=== PATIENT | female | born 1930 | race Caucasian/White ===

== ENCOUNTER 2019-10-09 11:39 | Emergency (ER) | payer MEDICARE, BC ==
[2019-10-09] MEDS ORDERED: Sodium Chloride 0.9% 10 ML Syringe FLUSH PRN (11:46)
--- NOTE | 2019-10-09 12:02 | EDM.PDOC ---
ED HPI GENERAL MEDICAL PROBLEM - General Chief Complaint: Cardiovascular Problem Stated Complaint: HEART PROBLEMS Time Seen by Provider: 10/09/19 12:15 Source of Information: Reports: Patient, RN. Denies: Old Records History Limitations: Reports: Other (no old records) - History of Present Illness INITIAL COMMENTS - FREE TEXT/NARRATIVE: 89 yo [place] no prior hx of afib noted a couple hrs before arrival that her heart was beating irregularly. She denies SOB, CP, or diaphoresis. Here with her . Onset: Today Onset Date: 10/09/19 Onset Time: 10:00 Duration: Hour(s): (2+), Constant Location: Reports: Chest Quality: Reports: Other (no pain) Severity: Moderate Improves with: Reports: None Worsens with: Reports: None Context: Reports: Other (See HPI) Associated Symptoms: Denies: Chest Pain, Diaphoresis, Shortness of Breath Treatments [employer]: Reports: Other (see below) (none) - Related Data Allergies Allergy/AdvReac Type Severity Reaction Status Date / Time Penicillins Allergy Cannot Verified 10/09/19 11:52 Remember Home Meds: Home Meds Aspirin [Ecotrin EC] 325 mg PO DAILY 10/09/19 [History] Clopidogrel [Plavix] 75 mg PO DAILY 10/09/19 [History] Denosumab [Prolia] 60 mg .XX ASDIRECTED 10/09/19 [History] Lovastatin 5 mg PO DAILY 10/09/19 [History] lisinopriL [Lisinopril] 2.5 mg PO DAILY 10/09/19 [History] Past Medical History HEENT History: Reports: Impaired Vision - Infectious Disease History Infectious Disease History: Reports: Chicken Pox, Measles, Mumps - Past Surgical History Musculoskeletal Surgical History: Reports: Knee Replacement Social & Family History - Tobacco Use Smoking Status *Q: Never Smoker - Caffeine Use Caffeine Use: Reports: Tea ED ROS GENERAL - Review of Systems Review Of Systems: See Below Constitutional: Reports: No Symptoms HEENT: Reports: No Symptoms Respiratory: Reports: No Symptoms Cardiovascular: Reports: Palpitations GI/Abdominal: Reports: No Symptoms : Reports: No Symptoms Musculoskeletal: Reports: No Symptoms Skin: Reports: No Symptoms Neurological: Reports: No Symptoms ED EXAM, GENERAL - Physical Exam Exam: See Below Exam Limited By: No Limitations General Appearance: Alert, WD/WN, No Apparent Distress Eye Exam: Bilateral Eye: Normal Inspection Ears: Normal External Exam, Normal Canal, Hearing Grossly Normal, Normal TMs Ear Exam: Bilateral Ear: Auricle Normal, Canal Normal Nose: Normal Inspection, No Blood Throat/Mouth: Normal Inspection, Normal Lips, Normal Oropharynx, Normal Voice, No Airway Compromise Head: Atraumatic, Normocephalic Neck: Normal Inspection Respiratory/Chest: No Respiratory Distress, Lungs Clear, Normal Breath Sounds, No Accessory Muscle Use, Chest Non-Tender Cardiovascular: No Edema, Tachycardia, Irregularly Irregular GI/Abdominal: Normal Bowel Sounds, Soft, Non-Tender, No Distention Back Exam: Normal Inspection. No: CVA Tenderness (R), CVA Tenderness (L) Extremities: Normal Inspection, Normal Range of Motion, Non-Tender, No Pedal Edema Neurological: Alert, Oriented, CN II-XII Intact, Normal Cognition, No Motor/S ensory Deficits Psychiatric: Normal Affect, Normal Mood Skin Exam: Warm, Dry, Intact, Normal Color, No Rash EKG INTERPRETATION EKG Date: 10/09/19 Time: 11:40 Rhythm: A-Fib Rate (Beats/Min): 139 [place]: Normal P-Wave: Absent QRS: LBBB ST-T: Normal QT: Normal Comparison: NA - No Prior EKG Course - Vital Signs Last Recorded V/S: Last Vital Signs Temp 36.9 C 10/09/19 11:45 Pulse 91 10/09/19 13:50 Resp 15 10/09/19 11:45 BP 151/75 H 10/09/19 13:50 Pulse Ox 98 10/09/19 11:45 - Orders/Labs/Meds Orders: Active Orders 24 hr Category Date Time Status Cardiac Monitoring [RC] .As Directed Care 10/09/19 11:46 Active EKG Documentation Completion [RC] ASDIRECTED Care 10/09/19 11:46 Active Sodium Chloride 0.9% [Saline Flush] Med 10/09/19 11:46 Active 10 ml FLUSH ASDIRECTED PRN Saline Lock Insert [OM.PC] Routine Oth 10/09/19 11:46 Ordered EKG 12 Lead [EK] Routine Ther 10/09/19 11:45 Ordered Medication Orders Sodium Chloride (Saline Flush) 10 ml FLUSH ASDIRECTED PRN PRN Reason: Keep Vein Open Last Admin: 10/09/19 12:07 Dose: 10 ml Documented by: JULY Labs: Laboratory Tests 10/09/19 10/09/19 Range/Units 12:01 12:01 WBC 7.6 (4.5-11.0) K/uL RBC 4.40 (3.30-5.50) M/uL Hgb 13.4 (12.0-15.0) g/dL Hct 41.3 (36.0-48.0) % MCV 94 (80-98) fL MCH 31 (27-31) pg MCHC 32 (32-36) % Plt Count 206 (150-400) K/uL Sodium 144 (140-148) mmol/L Potassium 4.3 (3.6-5.2) mmol/L Chloride 108 (100-108) mmol/L Carbon Dioxide 24 (21-32) mmol/L Anion Gap 11.9 (5.0-14.0) mmol/L BUN 16 (7-18) mg/dL Creatinine 0.7 (0.6-1.0) mg/dL Est Cr Clr Drug Dosing 39.90 mL/min Estimated GFR (MDRD) > 60 (>60) Glucose 101 (74-106) mg/dL Calcium 9.6 (8.5-10.1) mg/dL Troponin I < 0.017 (0.000-0.056) ng/mL TSH, Ultra Sensitive 1.397 (0.358-3.740) uIU/mL Meds: Medications Generic Name Dose Route Start Last Admin Trade Name Freq PRN Reason Stop Dose Admin Sodium Chloride 10 ml 10/09/19 11:46 10/09/19 12:07 Saline Flush FLUSH 10 ml ASDIRECTED PRN Administration Keep Vein Open Discontinued Medications Generic Name Dose Route Start Last Admin Trade Name Freq PRN Reason Stop Dose Admin Metoprolol Tartrate 5 mg 10/09/19 12:41 10/09/19 12:45 Lopressor IVPUSH 10/09/19 12:42 5 mg ONETIME ONE Administration Metoprolol Tartrate 5 mg 10/09/19 12:55 10/09/19 12:57 Lopressor IVPUSH 10/09/19 12:56 5 mg ONETIME ONE Administration Metoprolol Tartrate 50 mg 10/09/19 12:59 Lopressor PO 10/09/19 13:00 ONETIME ONE Metoprolol Tartrate 25 mg 10/09/19 13:48 10/09/19 13:50 Lopressor PO 10/09/19 13:49 25 mg ONETIME ONE Administration - Re-Assessments/Exams Free Text/Narrative Re-Assessment/Exam: 10/09/19 12:39 Cardioverted with IV propofol x 2 at 200 J and each time she converted to NSR and reverted back to afib. Free Text/Narrative Re-Assessment/Exam: 10/09/19 15:02 Did well after 50 mg of Metoprolol tartrate po. Able to ambulate without issue. Departure - Departure Time of Disposition: 15:10 Disposition: Home, Self-Care 01 Condition: Fair Clinical Impression: Atrial fibrillation with RVR Instructions: Atrial Fibrillation, [id number] Referrals: PCP,None [Primary Care Provider] - Forms: ED Department Discharge Additional Instructions: Take metoprolol tartrate 50 mg every 12 hrs. See your doctor as soon as possible for recheck, take all of your test results with you to your appt. Return here for a recurrence of your rapid heart rate. Sepsis Event Note (ED) - Focused Exam Vital Signs: Vital Signs Temp Pulse Pulse Resp BP BP Pulse Ox 10/09/19 13:50 91 151/75 H 10/09/19 12:57 98 102/56 L 10/09/19 12:45 119 H 102/46 L 10/09/19 11:45 36.9 C 145 H 15 162/88 H 98 - My Orders Last 24 Hours: My Active Orders 10/09/19 11:45 EKG 12 Lead [EK] Routine 10/09/19 11:46 Cardiac Monitoring [RC] .As Directed EKG Documentation Completion [RC] ASDIRECTED Sodium Chloride 0.9% [Saline Flush] 10 ml FLUSH ASDIRECTED PRN Saline Lock Insert [OM.PC] Routine - Assessment/Plan Last 24 Hours: My Active Orders 10/09/19 11:45 EKG 12 Lead [EK] Routine 10/09/19 11:46 Cardiac Monitoring [RC] .As Directed EKG Documentation Completion [RC] ASDIRECTED Sodium Chloride 0.9% [Saline Flush] 10 ml FLUSH ASDIRECTED PRN Saline Lock Insert [OM.PC] Routine
[2019-10-09] MEDS ORDERED: Metoprolol Tartrate 5 MG/5 ML SDV IVPUSH ONE ×2 (12:41→12:55)
[2019-10-09] MEDS ORDERED: Metoprolol Tartrate 50 MG Tab PO ONE (12:59)
[2019-10-09] MEDS ORDERED: Metoprolol Tartrate 25 MG Tab PO ONE (13:48)
[2019-10-09] MEDS ORDERED: Propofol 200 MG/20 ML SDV ONE (14:00)
== END 2019-10-09 15:27 | disposition home or self-care (01) ==
LOC: JP.ED 11:39
DX: I48.91 Unspecified atrial fibrillation (principal); Z88.0 Allergy status to penicillin; Z79.82 Long term (current) use of aspirin; Z79.02 Long term (current) use of antithrombotics/antiplatelets; Z79.899 Other long term (current) drug therapy
CPT/HCPCS: 36415; 80048; 84443; 84484; 85027; 92960; 93005; 96374; 99285; A9270; J2704; J3490; 93010